=== PATIENT | male | born 1950 | race Caucasian/White ===

== ENCOUNTER → 2024-01-21 07:24 | Outpatient (REF) | payer MEDICARE, OTHER, SELFPAY | LOC: EMG 07:24 | PROVIDERS: ATTENDING PHYSICIAN Psychiatry & Neurology Neurology; FAMILY PHYSICIAN Family Medicine | DX: G61.0 Guillain-Barre syndrome (principal); R20.0 Anesthesia of skin | CPT/HCPCS: 95886; 95911 ==

== ENCOUNTER → 2024-02-15 11:34 | Outpatient (REF) | payer MEDICARE, OTHER, SELFPAY | LOC: PAVMRI 11:34 | PROVIDERS: ATTENDING PHYSICIAN Psychiatry & Neurology Neurology; FAMILY PHYSICIAN Family Medicine | DX: G40.009 Localization-related (focal) (partial) idiopathic epilepsy and epileptic syndromes with seizures of localized onset, not intractable, without status epilepticus (principal) | CPT/HCPCS: 72157; A9575 ==

== ENCOUNTER → 2024-02-16 11:26 | Outpatient (REF) | payer MEDICARE, OTHER, SELFPAY | LOC: PAVMRI 11:26 | PROVIDERS: ATTENDING PHYSICIAN Psychiatry & Neurology Neurology; FAMILY PHYSICIAN Family Medicine | DX: G61.0 Guillain-Barre syndrome (principal) | CPT/HCPCS: 72156; A9575 ==

== ENCOUNTER 2024-08-22 12:10 | Inpatient (IN) | payer MEDICARE, OTHER, SELFPAY ==
[2024-08-22] VITALS (71 sets, daily range): BP systolic 135–192; BP diastolic 78–110; BMI 31.9
[2024-08-22 10:05] LABS: Glucose - Point of Care 88 mg/dl (70-99)
--- NOTE | 2024-08-22 10:11 | CON.NEURO ---
Consultation
Order
Date of Consultation: 08/22/24
Requesting physician: Celine Benavides MD
Reason for Consult: Stroke alert
Prehospital notification: 9:52 AM
Neurology Consultation Note.
HPI: This is a 73-year-old man who presented to [facility] on with aphasia.
According to EMS Mr. Degroot was found confused and aphasic at the kitchen table approximately 35 minutes prior to the presentation.
According to MS. Degroot this morning around 9:05 AM, the patient was speaking normally and fluently. However, shortly after, he became unable to complete sentences without them being garbled. The patient's reports that he was still able to
comprehend and did not seem different in other aspects.
The patient typically wakes up around 4 AM but waits to take his medication until his wakes up. It is unclear if he took his medication this morning.
Recently, the patient was diagnosed with polymyalgia rheumatica and started on prednisone.
Mr. Degroot reportedly has not had any recent surgeries, procedures,head trauma or epidural steroid injections. There has been no reported blood in his stool or urine, and he does not have any underlying cancers.
Blood pressure by EMS 170/90, heart rate is 83.
ER VS: 192/107, 74, 18, afebrile
PDMP: No recently prescribed medications
Labs: Normal platelets, PT PTT
CT head wo contrast�mild atrophy
CTA head/neck�no evidence of hemodynamically significant stenosis
Ambulatory EEG(05/29/2020) normal
PMH: Polymyalgia rheumatica, chronic cerebellar infarct, seizure DO, CAD, HTN, DLP, IGT, vitamin B12 deficiency, bilateral (neuropathy), asthma, chronic back pain
PSH: AVR(11/20/2014), CABG,
SH: , former smoker,
FH: Not contributory to current presentation
All: Chlorpromazine
ROS: Unable due to aphasia
General: Well developed. In no acute distress.
Cardio: Regular rate . Extremities are without cyanosis or edema.
Neuro:
Mental Status: Alert, attends to examiner briefly. Follows simple requests intermittently. No verbal output. No hemineglect.
Cranial Nerves: Orthophoric primary gaze pupils are equally round and reactive to light. Horizontal EOMs full. Blinks to threat bilaterally no ptosis. No nystagmus. V1-V3 intact to light touch and pinprick bilaterally, symmetric. Face
symmetric. Normal hearing AU. The palate elevated well. SCMs and traps 5/5. Tongue midline. No dysarthria.
Motor: All limbs are antigravity. Limited exam due to aphasia
Sensory: Admitted exam due to poor attention.
Coordination: No tremors, clonic movements
Gait: deferred
Assessment and Plan:
I. Acute expressive and receptive aphasia. Differential diagnosis includes vascular vs ictal versus viral.
II. History of epilepsy
III. Hypertensive emergency
IV. Polymyalgia rheumatica
-Admit to ICU
-STAT IV Tenecteplase 25 mg/kg once. TNK has similar efficacy and safety outcomes compared with alteplase including rates of excellent functional outcome, symptomatic intracerebral hemorrhage, and mortality at 90 days. Risks including intracranial
hemorrhage and benefits of TNK therapy has been discussed with patient's spouse who was agreeable to treatment
-Neuro checks while in the ED � Q15 minutes.
-Maintain euvolemia using 0.9% NaCl.
-Strictly follow I's & O's.
-Avoid antihypertensive medications unless MAP is persistently higher than 130
-Treat persistently elevated MAP>130 with IV Labetalol.
- NPO, especially if the level of arousal is depressed.
-NGT after the 2nd day for nutrition and meds if dysarthria or dysphagia present;
-Maintain elevation of HOB 30-45 degrees.
- Utilize a pneumatic compression device for DVT prophylaxis.
- For anticoagulation-related hemorrhage: aggressive reversal using FFP, Vitamin K, protamine sulfate.
-No antiplatelet agents nor anticoagulants, including heparin, low molecular weight heparin, heparinoids, warfarin, ASA and other antiplatelet agents, and NSAIDs;
-Monitoring of vital signs and neurologic status should be performed every hour.
-For any worsening of neurologic condition:
a. STAT head CT
b. STAT neurologic consult for evaluation
c. STAT Neurosurgical consult for evaluation
-Seizure precautions
-Routine EEG
-Brain MRI
-Continue Keppra 1 g twice daily IV
-Continue aspirin 81 mg once a day
-Check Keppra level, CK, LDL, urine tox
-TTE
SCD/TEDs;
I personally reviewed all radiology and labs along with past medical records pertinent to current medical problems. Total time spent in patient care is 60 minutes.
Thank you for allowing us to participate in the care of this patient. We will continue to follow. Please do not hesitate to contact us with any questions or concerns.
Subjective/Objective
Subjective Data
Date of Service: August 22, 2024
Objective Data
Patient Allergies
chlorpromazine [From Thorazine] Adverse Reaction (Severe, Verified 04/12/22 08:55)
Unknown
Medications
-
Home Medications
�Medication �Instructions �Recorded
ascorbic acid (vitamin C) 500 mg 1,000 mg PO DAILY Supplement 06/06/18
tablet (Vitamin C)
aspirin 81 mg tablet,delayed 81 mg PO DAILY Blood clot 06/06/18
release prevention/tx
atorvastatin 40 mg tablet 40 mg PO HS High cholesterol 06/06/18
metoprolol succinate 50 mg 50 mg PO HS Blood pressure 06/06/18
tablet,extended release 24 hr
albuterol sulfate 90 mcg/actuation 2 puff inhalation R QID PRN 04/12/22
aerosol inhaler wheezing
fluticasone furoate 200 1 inh inhalation DAILY 04/12/22
mcg-vilanterol 25 mcg/dose Lung/breathing issues
inhalation powder (Breo Ellipta)
levetiracetam 1,000 mg tablet 1,000 mg PO BID Neurological 04/12/22
Condition
acetaminophen 325 mg tablet 650 mg (2 x 325 mg) PO Q6HPRN PRN 04/16/22
mild pain/ fever>100.5F #0 tabs
cyanocobalamin (vitamin B-12) 1,000 mcg PO DAILY #1 tab 04/16/22
1,000 mcg tablet
amlodipine 5 mg tablet 5 mg PO BID #60 tabs 04/24/22
gabapentin 400 mg capsule 800 mg (2 x 400 mg) PO TID #90 caps 04/24/22
Home Medications
-
Home Medications
ascorbic acid (vitamin C) 500 mg tablet (Vitamin C) 1,000 mg PO DAILY Supplement 06/06/18
aspirin 81 mg tablet,delayed release 81 mg PO DAILY Blood clot prevention/tx 06/06/18
atorvastatin 40 mg tablet 40 mg PO HS High cholesterol 06/06/18
metoprolol succinate 50 mg tablet,extended release 24 hr 50 mg PO HS Blood pressure 06/06/18
albuterol sulfate 90 mcg/actuation aerosol inhaler 2 puff inhalation R QID PRN wheezing 04/12/22
fluticasone furoate 200 mcg-vilanterol 25 mcg/dose inhalation powder (Breo Ellipta) 1 inh inhalation DAILY Lung/breathing issues 04/12/22
levetiracetam 1,000 mg tablet 1,000 mg PO BID Neurological Condition 04/12/22
acetaminophen 325 mg tablet 650 mg (2 x 325 mg) PO Q6HPRN PRN mild pain/ fever>100.5F #0 tabs 04/16/22
cyanocobalamin (vitamin B-12) 1,000 mcg tablet 1,000 mcg PO DAILY #1 tab 04/16/22
amlodipine 5 mg tablet 5 mg PO BID #60 tabs 04/24/22
gabapentin 400 mg capsule 800 mg (2 x 400 mg) PO TID #90 caps 04/24/22
[2024-08-22 10:20] LABS: % Basophils 0.4 % (0-2); % Eosinophils 1.6 % (0-6); % Immature Granulocytes 0.9 % (0-0.5); % Lymphocytes 24.3 % (20.5-51.1); % Monocytes 9.8 % (1.7-9.3); Absolute Basophils 0.1 10^3/uL (0-0.2); Absolute Eosinophils 0.2 10^3/uL (0-0.7); Absolute Immature Granulocytes 0.1 10^3/uL (0-0.05); Absolute Lymphocytes 2.8 10^3/uL (1.2-3.4); Absolute Monocytes 1.1 10^3/uL (0.1-0.6); Absolute Neutrophils 7.2 10^3/uL (1.4-6.5); Hematocrit 47.5 % (39.0-52.0); Mean Corp Hgb Conc. 33.7 g/dL (33.0-37.0); Mean Corpuscular Hgb 31.2 pg (27.0-31.0); Mean Corpuscular Volume 92.6 fL (80.0-94.0); Mean Platelet Volume 8.7 fL (7.4-10.4); Nucleated Red Blood Cells % 0 % (-); Platelet Count 244 10^3/uL (130-400); Red Blood Cell Count 5.13 10^6/uL (4.70-6.10); Red Cell Dist. Width 13.7 % (11.5-14.5); White Blood Cell Count 11.4 10^3/uL (4.8-10.8)
[2024-08-22 10:32] LABS: APTT 24.5 Sec (23.4-35.0); INR 0.99; PT 13.4 Sec (11.4-14.6)
--- NOTE | 2024-08-22 10:37 | ED.CVA ---
History of Present Illness
General
Chief Complaint: CVA/TIA Symptoms
Time Seen by Provider: 08/22/24 10:03
Onset of Stroke Symptoms
Onset of symptoms known: Yes
Date of onset of symptoms: 08/22/24
Time of onset of symptoms: 09:00
Time pt last seen normal is known: Yes
Date last time pt seen normal: 08/22/24
Time last time pt seen normal: 09:00
History of Present Illness
History of Present Illness:
73-year-old male with history of seizure disorder and hypertension presenting to the emergency department for strokelike symptoms. Per medics, saw patient about 30 minutes prior to arrival, was aphasic. Initial report of last seen normal last
evening prior to bedtime. Patient did have aortic valve repair several weeks ago, however is on aspirin, otherwise no thinners. Patient very limited historian given his presenting aphasia. No report of recent fall or trauma. Patient is on Keppra
for his seizures. Per , last seizure was about 5 years ago. No additional history obtained at this time
Past History
Past History
ED Past Medical History: Asthma, CAD, HTN, Hypercholesterolemia, Other (TERE positive, low vitamin B12 level, obstructive sleep apnea) and Other (Chronic back pain)
ED Past Surgical History: Cardiac (AVR 2014, CABG 2010)
Social History
Tobacco: Non-smoker
Alcohol: None
Drug: None
Personal:
Living: with family
Employment: Employed
Family History
Family History: CAD
Phy Exam
Physical Exam
Physical Exam:
General: Alert, nontoxic
HEENT: protecting airway
Neck: appears supple
CV: Normal heart rate, regular rhythm
Resp: No accessory muscle use, no increased work of breathing, lungs clear to auscultation bilaterally
Abd: Soft and non-distended, no tenderness to palpation
Extremities: No deformities, no swelling, no erythema
Neuro: alert, however severe aphasia, expressive aphasia as well as broken aphasia. Difficulty following some commands. No weakness to upper and lower extremities with sensation intact.
: deferred
Rectal: deferred
Psych: Normal affect
Skin: Intact
Scores
NIH Stroke Score
Level of Consciousness: 0 - Alert
LOC Questions: 2-Neither correct
LOC Commands: 1-Performs one correctly
Best Horizontal Gaze: 0-Normal
Visual Peng: 0=Normal, no visual loss
Facial Palsy: 0=Normal, symmetrical
Motor - Right Arm: 0=No drift 10 seconds
Motor - Left Arm: 0=No drift 10 seconds
Motor - Right Le-No drift 5 seconds
Motor - Left Le-No drift 5 seconds
Limb Ataxia: 2-Present in two limbs
Sensation: 0-Normal
Best Language: 2-Severe aphasia
Dysarthria: 0-Normal
Extinction and Inattention: 0-No abnormality
Total Score:: 7
Course
Orders/Labs/Results
Orders:
Orders
08/22/24 10:02
Electrocardiogram (*1) Urgent
Reason for Study: Other
Other Reason for Exam: Possible Stroke
CT HEAD STROKE ALERT W/o Cont Urgent
Comment:
Reason For Exam: aphasia
Bedside Glucose- Treatment ONCE
Cardiac Monitoring- Treatment ONCE
EKG- Treatment ONCE
IV Insert/Care/Rem.- Treatment PRN
Vital Signs As Directed
Frequency: Other
Weight As Directed
Frequency: Once
Comment: ZERO STRETCHER SCALE FOR ACCURATE WEIGHT
O2 Therapy [RESP] Urgent
Titrate/Wean O2 to maintain O2 sat greater than (%): 93
Special Instructions: MAINTAIN CONTINUOUS O2 SATS > OR = 93%
08/22/24 10:03
CT HEAD/NECK ANG STROKE ALERT Urgent
Comment:
Reason For Exam: aphasia
08/22/24 10:11
Complete Blood Count/With Diff Urgent
Comprehensive Metabolic Panel Urgent
PTT Urgent
Prothrombin Time Urgent
Troponin I Urgent
08/22/24 10:32
Tenecteplase [Tnkase] 25 mg Syringe [Syringe Non-Pump] 0 ml IV NOW
Provider explained risk/benefits to patient &/or caregiver?: Yes
08/22/24 10:35
Aspirin 300 mg RECTAL NOW STA
Labetalol HCl [Trandate] 20 mg IV NOW STA
08/22/24 10:41
Labetalol HCl [Trandate] 10 mg IV NOW STA
08/22/24 10:42
Speech Screening from Heather Routine
08/22/24 11:00
Flush (0.9% Sodium Chloride) [Flush (Nss)] See Dose Instructions IV PER PROTOCOL
Abnormal Lab Results
08/22/24
10:11
WBC 11.4 H 10^3/uL
(4.8-10.8)
MCH 31.2 H pg
(27.0-31.0)
Abs Immat Gran (auto) 0.1 H 10^3/uL
(0-0.05)
Absolute Neuts (auto) 7.2 H 10^3/uL
(1.4-6.5)
Absolute Monos (auto) 1.1 H 10^3/uL
(0.1-0.6)
Immature Gran % 0.9 H %
(0-0.5)
Monocytes % 9.8 H %
(1.7-9.3)
08/22/24 10:11
Vital Signs
Initial and Last Documented VS:
Initial Vital Signs
Temp Pulse Resp BP Pulse Ox
98.7 F 74 18 192/107 94
08/22/24 10:28 08/22/24 10:28 08/22/24 10:28 08/22/24 10:28 08/22/24 10:28
Last Documented Vital Signs
Temp Pulse Resp BP Pulse Ox
98.7 F 74 18 192/107 94
08/22/24 10:28 08/22/24 10:28 08/22/24 10:08/22/24 10:08/22/24 10:28
MDM/Problems Addressed
MDM/Problems Addressed:
73-year-old male with history of hypertension and seizures presenting for severe aphasia. Vital signs on arrival significant for high blood pressure.
Patient was a prehospital stroke alert. Patient met by ambulance crew with severe aphasia, both broken and expressive. No significant weakness to the extremities. NIH stroke scale at this time is 7 with concern for stroke. Initial story was that
patient was last seen normal last evening, indicating not a TNK candidate. Neurology also at bedside on patient's arrival, plan for CTA and CT head imaging.
10:35 - CT and CTA reported negative by radiology.
10:45 - Discussed again with neurology, who discussed directly with that patient was last normal at 9 AM this morning, so patient is in fact a TNK candidate. No contraindications. consented. Blood pressure initially elevated, however
improved without any antihypertensive medications, clear for TNK.
10:50 - TNK administered and significant improvement in symptoms. Patient is now speaking more clearly, able to identify objects, making more sense in his conversation. Plan for admission to ICU
*Critical Care Note
Total Time (30-74mins, 75-104mins- exclusive of procedures): 55
comment:
The high probability of a clinically significant, sudden or life threatening deterioration of the neurologic system(s) required my full and direct attention, intervention and personal management. The aggregate critical care time was 55 minutes. This
time is in addition to time spent performing reported procedures but includes the following:
[x] Data Review and interpretation
[x] Patient assessment and monitoring of vital signs
[x] Documentation
[x] Medication orders and management
ED Attending Note
-
Portions of this chart may have been created with voice recognition software.� Occasional wrong word or��sound alike� substitutions may have occurred due to the inherent limitations of voice recognition software.
Discharge Plan
Departure
Prescriptions:
No Action
atorvastatin 40 MG tablet
40 mg PO .Q72H@2200
metoprolol succinate 50 MG tablet extended release 24 hr
50 mg PO HS
aspirin 81 MG tablet,delayed release (DR/EC)
81 mg PO DAILY
ascorbic acid (vitamin C) [Vitamin C] 500 MG tablet
1,000 mg PO DAILY
levetiracetam 1,000 mg Tablet
1,000 mg PO BID
albuterol sulfate 1 PUFF HFA aerosol inhaler
2 puff inhalation R QIDPRN PRN (Reason: wheezing)
cyanocobalamin (vitamin B-12) 1,000 mcg Tablet
1,000 mcg PO DAILY Qty: 1 0RF
prednisone 5 mg Tablet
12.5 mg PO DIRECTED
Rx Instructions:
as of august 08 patient to decrease to 12.5mg, unsure for how long
montelukast [Singulair] 10 mg Tablet
10 mg PO DAILY
Referrals:
UNKNOWN - PT NOT,INTERVIEWE [Family Provider] -
Interventions
Interventions:
*Risk Screen - Suicide Last Done: 08/22/24 10:42
*General Assessment Last Done: 08/22/24 10:42
*Neglect/Abuse Screening Last Done: 08/22/24 10:42
*ED- Fall Risk Assessment Last Done: 08/22/24 10:42
*ED COVID-19 Vaccine History Last Done: 08/22/24 10:42
ED- Pulmonary Assessment Last Done: 08/22/24 10:28
ED- Neurological Assessment Last Done: 08/22/24 10:28
ED- Cardiac Assessment Last Done: 08/22/24 10:28
ED Swallowing Screen Last Done: 08/22/24 10:28
Discharge Date and Time
Print Language: THAI
[2024-08-22 10:44] LABS: ALT (SGPT) 37 U/L (0-50); AST (SGOT) 26 U/L (17-59); Albumin 4.6 g/dl (3.5-5.0); Alkaline Phosphatase 34 U/L (38-126); Blood Urea Nitrogen 26 mg/dl (9-20); Calcium 9.2 mg/dl (8.4-10.2); Carbon Dioxide 29 mmol/L (22-30); Chloride 103 mmol/L (98-107); Glucose 89 mg/dl (70-99); Potassium 4.1 mmol/L (3.5-5.1); Sodium 141 mmol/L (135-145); Total Bilirubin 0.8 mg/dl (0.2-1.3); Total Protein 6.7 g/dl (6.3-8.2); eGFR > 60.00
[2024-08-22] MEDS: TNKASE 5 MG IV (10:49)
--- NOTE | 2024-08-22 10:51 | EDRN ---
TNK given per neurologist. Neurologist spoke to the patient's and was told that the patient was seen normal around 0900.
[2024-08-22 11:00] LABS: Troponin I 0.031 ng/ml
--- NOTE | 2024-08-22 11:10 | EDRN ---
Patient is AAOx3. Patient's expressive aphasia is improving. Patient stated that he woke up with a headache today. Patient remembers taking his medications this morning. Patient stated that after he brushed his teeth he could not speak. Patient with
repetitive questions.
[2024-08-22] MEDS: FLUSH (NSS) 1 FLUSH IV (11:37)
[2024-08-22 11:50] LABS: HDL Cholesterol 47 mg/dl; LDL Cholesterol, Calculated 93 mg/dl; Total Cholesterol 164 mg/dl (50-199); Triglyceride 121 mg/dl (10-149); Very Low Density Lipoprotein 24 mg/dl (0-30)
--- NOTE | 2024-08-22 12:20 | EDRN ---
Report given to SUSAN Ansari in ICU. Family with patient. Instructed with to take patient's belongings home with her. Patient insisting on keeping his [employer] badge with him. Badge placed in inside pocket of his jacket by . Patient taken to room 3365 on
monitor on stretcher. [facility] done at bedside with SUSAN Ansari.
--- NOTE | 2024-08-22 12:37 | HPS.HSE ---
Family Physician
-
Family Physician: Stewart Benson
Chief Complaint
-
Aphasia
History of Present Illness
73-year-old male with polymyalgia rheumatica on chronic steroid, dyslipidemia, CARLOS not on CPAP, moderate persistent asthma, B12 deficiency, CAD s/p CABG (2010 at [facility]), pulmonary nodule, H/O Guillain-Pathak� syndrome, S/P TAVR presenting to
the hospital with strokelike symptoms. Per EMS the noticed that the patient was aphasic about 30 minutes prior to their arrival. Last known normal was 9 AM morning of 08/22. Arrived as a prehospital stroke alert. AFVSS at that time. Initial
NIHSS 7. CT head was without signs of transcortical infarct, ICH, other acute findings. CTA was without large vessel occlusion or other acute findings. Neurology recommended TNK administration which was performed at 10:50 AM. Reportedly had a
significant symptomatic improvement following TNK administration. ED labs with WBC 11.4, LDL 93.
Medical History
Past Medical History
Past Medical History: Reports Other
Additional Past Medical History:
CAD
PMR
CARLOS not on CPAP
Mod. Persistent Asthma
Pulmonary nodule
H/O GBS
Past Surgical History: Reports Other
Additional Past Surgical History:
S/P AVR (2014)
S/P CABG (2010)
Social History
Tobacco: Non-smoker
Alcohol: Occasional
Drug: None
Family History
Family History: Not pertinent and Other (CAD)
Allergies / Home Medications
Allergies reflects when Allergies were last updated in [facility].
Home Medications with original date entered in [facility]
Allergy/Medication List:
Allergies
Allergy/AdvReac Type Severity Reaction Status Date / Time
chlorpromazine AdvReac Severe Unknown Verified 04/12/22 08:55
[From Thorazine]
Home Medications
ascorbic acid (vitamin C) 500 mg tablet (Vitamin C) 1,000 mg PO DAILY Supplement 06/06/18
aspirin 81 mg tablet,delayed release 81 mg PO DAILY Blood clot prevention/tx 06/06/18
atorvastatin 40 mg tablet 40 mg PO .Q72H@2200 High cholesterol 06/06/18
metoprolol succinate 50 mg tablet,extended release 24 hr 50 mg PO HS Blood pressure 06/06/18
albuterol sulfate 90 mcg/actuation aerosol inhaler 2 puff inhalation R QIDPRN PRN wheezing 04/12/22
levetiracetam 1,000 mg tablet 1,000 mg PO BID Neurological Condition 04/12/22
cyanocobalamin (vitamin B-12) 1,000 mcg tablet 1,000 mcg PO DAILY #1 tab 04/16/22
montelukast 10 mg tablet (Singulair) 10 mg PO DAILY Lung/Breathing Issues 08/22/24
prednisone 5 mg tablet 12.5 mg PO DIRECTED Anti-Inflammatory 08/22/24
Review of Systems
-
History Source: Patient
A 12 point ROS was completed and negative except as noted: Yes
Constitutional: Reports No Symptoms
EENT: Reports No Symptoms
Respiratory: Reports No Symptoms
Cardiac: Reports No Symptoms
Abdomen/GI: Reports No Symptoms
: Reports No Symptoms
Musculoskeletal: Reports No Symptoms
Skin: Reports No Symptoms
Neurological: Reports See HPI
Endocrine: Reports No Symptoms
Hematologic/Lymphatic: Reports No Symptoms
Psych: Reports No Symptoms
Physical Exam
Vital Signs
Vital Signs
Temp Pulse Resp BP Pulse Ox
98.7 F 78 20 173/96 96
08/22/24 10:28 08/22/24 12:20 08/22/24 12:20 08/22/24 12:20 08/22/24 11:48
Physical Exam
General: Well Developed, Well Nourished, No Apparent Distress and Comfortable
HEENT: NormoCephalic, Anicteric, Moist mucous membranes and Atraumatic
Respiratory: Clear and Non Labored Respirations
Cardiac: S1/S2 and Regular Rhythm; No Murmur, Rub, Gallop, Peripheral Edema, JVD or Carotid Bruits
GI: Soft, Non Tender, Non Distended and Normal Bowel Sounds
Musculoskeletal: No Clubbing, No Cyanosis and Normal Gait & Station
Skin: Warm and Dry; No Rash
Neuro: AO x 3, Nonfocal/grossly intact, Cranial Nerves Intact and Other (NIHSS 0)
Psych: Calm
Laboratory Results
-
Laboratory Results
PT 13.4 Sec (11.4-14.6) 08/22/24 10:11
INR 0.99 08/22/24 10:11
APTT 24.5 Sec (23.4-35.0) 08/22/24 10:11
Total Bilirubin 0.8 mg/dl (0.2-1.3) 08/22/24 10:11
AST 26 U/L (17-59) 08/22/24 10:11
ALT 37 U/L (0-50) 08/22/24 10:11
Alkaline Phosphatase 34 U/L (38-126) L 08/22/24 10:11
Troponin I 0.031 ng/ml 08/22/24 10:11
Data Reviewed
-
MRI: Discussed with Physician (Neuro, ICU)
Lab Data: Labs Reviewed by me, Discussed with Physician and Discussed with Patient
Impression/Plan
-
#Acute CVA
#Expressive Aphasia
-Very likely acute cerebral ischemia; initial NIHSS 7 with aphasia, last known normal 9 AM 08/22
-Initial CT head without signs of ICH or other acute findings, CTA without LVO or acute findings
-CTA was also without any findings of high-grade carotid stenosis
-Status post TNK with NIHSS improvement down to close to 0
-Metabolic panel with LDL 93, total cholesterol 164, HDL 47
-Most recent vital signs with BP 173/96 mmHg
-NIHSS 0 at time of my evaluation
Plan
-BP goal <180/105 mmHg for next 24 hours; IV hydralazine/labetalol as needed
-Monitor on telemetry for underlying arrhythmia such as AF/AFL
-Follow-up MRI brain w/o contrast and TTE
-Continue with statin therapy
-Hold aspirin and other AC for at least 24 hours
-Plan for repeat CT head on 08/23
-Neuro consult
-neurochecks
#Seizure disorder
-History of seizures that he is describes as absent periods
-Home medications include Keppra 1 g twice daily
-Suspect presentation here more related to CVA as it improved with TNK
-Neurology updating EEG, will follow-up for completeness
#CAD s/p CABG
-Home medications include aspirin, high intensity statin, metoprolol succinate
-CABG was performed in 2010 at [facility]
-Holding aspirin as above due to TNK administration
-No signs of ACS
#Polymyalgia rheumatica
#Chronic steroid
-Home regimen includes prednisone 10 mg (7.5 AM + 2.5 PM)
-Has been on extended taper of prednisone, immunosuppressed
-No signs of worsening symptoms at this time
#Moderate persistent asthma
-Home regimen includes Singulair, as needed albuterol
-No signs of asthma flare
-Should be discharged on LABA/ICS maintenance such as Symbicort
#CARLOS not on CPAP
#H/O GBS
DVT PPhx: SCDs
Diet: Regular
CODE STATUS: Full Code
Disposition: Admit to ICU
--- NOTE | 2024-08-22 13:30 | PTCARENOTE ---
Pt arrived via stretcher from ED into Rm 3365 at 1235. Pt awake and talkative, following commands and all conversation appropriate. NIHSS=1 completed w/ ED RN. No running IV's at time of arrival. Pt on RA w/ Pox 96-98%. Pt reports 3/10 frontal
headache that he reports is unchanged since earlier this AM. Physical assessment completed. Orientation provided to pt on surroundings/plan of care/use of call guevara. Pt's and two sons in room at 1300 to see pt-updated on pt's current condition
and plan of care. technology sales consultant in room at begin ordered EEG. Dr Koenig in room to assess pt.
--- NOTE | 2024-08-22 13:37 | CON.INTV ---
Consultation
Consultation Request
Date/Time Consultation Requested: 08/22/2024 12:33pm
Date/Time Consultation Performed: 08/22/2024 1:10pm
Requesting Provider: Dr. Cam Mclean
Performing Provider: Dr. Jl Wood, Dr. Catrina Cadena
Reason for Consultation: Stroke-like symptoms with subsequent administration of TNK
Medical History
-
Chief Complaint: Aphasia
History of Present Illness:
73-year-old male with a past medical history of seizure disorder and hypertension presented to the emergency department due to stroke-like symptoms. Patient was aphasic and having trouble speaking. He was able to understand conversation, and had
no other motor deficits including no drooping, trouble swallowing, sensory deficits. As with discussion with patient's , patient was last seen normally around 9 AM this morning. Patient states that he has had similar symptoms in the past
around 2 to 3 years ago where he had to use his hands to communicate with his as he could not speak. These events resolved by themselves within a few moments. Patient underwent CTA which did not show any acute findings. Neurology evaluated
the patient and the patient was determined to be a TNK candidate. Following administration of TNK there was significant improvement in symptoms. He was able to speak clearly and was able to identify objects and was more coherent. Patient was
admitted to the ICU for further monitoring due to TNK administration.
Past Medical History
Past Medical History: CAD and Other (PMR, CARLOS not on CPAP Mod, Persistent Asthma, Pulmonary nodule, H/O Guillain-Pathak�)
Past Surgical History: Other (S/P AVR (2014), S/P CABG (2010))
Social History
Tobacco: Non-smoker
Alcohol: Occasional
Drug: None
Personal:
Living: With Family
Family History
Family History: Reviewed & Not Pertinent
Allergies / Home Medications
Allergies
Allergy/AdvReac Type Severity Reaction Status Date / Time
chlorpromazine AdvReac Severe Unknown Verified 04/12/22 08:55
[From Thorazine]
Home Medications
�Medication �Instructions �Recorded �Confirmed �Last Taken �Type
ascorbic acid (vitamin C) 500 mg 1,000 mg PO DAILY Supplement 06/06/18 08/22/24 04/11/22 History
tablet (Vitamin C)
aspirin 81 mg tablet,delayed 81 mg PO DAILY Blood clot 06/06/18 08/22/24 04/11/22 History
release prevention/tx
atorvastatin 40 mg tablet 40 mg PO .Q72H@2200 High 06/06/18 08/22/24 04/11/22 History
cholesterol
metoprolol succinate 50 mg 50 mg PO HS Blood pressure 06/06/18 08/22/24 04/11/22 History
tablet,extended release 24 hr
albuterol sulfate 90 mcg/actuation 2 puff inhalation R QIDPRN PRN 04/12/22 08/22/24 04/11/22 History
aerosol inhaler wheezing
levetiracetam 1,000 mg tablet 1,000 mg PO BID Neurological 04/12/22 08/22/24 04/11/22 History
Condition
cyanocobalamin (vitamin B-12) 1,000 mcg PO DAILY #1 tab 04/16/22 08/22/24 Unknown Rx
1,000 mcg tablet
montelukast 10 mg tablet 10 mg PO DAILY Lung/Breathing 08/22/24 08/22/24 Unknown History
(Singulair) Issues
prednisone 5 mg tablet 12.5 mg PO DIRECTED 08/22/24 08/22/24 Unknown History
Anti-Inflammatory
Review of Systems
-
History Source: Patient and Family
Constitutional: No Symptoms
EENT: No Symptoms
Respiratory: No Symptoms
Cardiac: No Symptoms
Abdomen/GI: Other (Mild heartburn)
: No Symptoms
Musculoskeletal: No Symptoms
Skin: No Symptoms
Neuro: Other (Trouble speaking which has now resolved)
Endocrine: No Symptoms
Hematologic/Lymphatic: No Symptoms
Vitals / Labs / Diagnostic Testing
Vital Signs
Temp Pulse Resp BP Pulse Ox
98.0 F 79 21 161/95 96
08/22/24 12:47 08/22/24 13:20 08/22/24 13:20 08/22/24 13:20 08/22/24 13:34
Lab Data
08/22/24 12:33
Laboratory Results
08/22/24 08/22/24
10:11 12:33
PT 13.4 Cancelled
INR 0.99 Cancelled
APTT 24.5 Cancelled
Diagnostic Testing:
Physical Exam
-
HEENT: Normocephalic and Anicteric
Cardiovascular: S1/S2 and Regular Rhythm
Respiratory: Clear and Non-Labored Respirations
GI: Soft, Distended, Non Tender and Normal Bowel Sounds
Neurology: Awake, Alert, Oriented, No Motor Deficits and Other (Right pupil larger than the left, very mild facial droop on right side,)
Skin: Warm
General: Comfortable
Assessment
-
Assessment:
73-year-old male with a past medical history of polymyalgia rheumatica, seizures, moderate persistent asthma, CAD, Guillain-Pathak� syndrome and hypertension presented to the ED due to recent difficulty speaking. Patient underwent CT scans which did
not show any acute findings, was evaluated by neurology who determined that patient was most likely affected by stroke and was in the timeframe for TNK administration. TNK was subsequently administered and patient's symptoms continue to resolve.
Patient was admitted to the ICU for further management post TNK administration.
Plan:
# Strokelike symptoms with aphasia post TNK administration
# Hypertension
# Epileptic Seizures
# Moderate Persistent Asthma
Conditions Prior to Admission
Polymyalgia Rheumatica
Hypertension
CAD
Hyperlipidemia
CARLOS not on CPAP
S/P TAVR
H/O Guillain-Pathak� syndrome
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
-Patient only had aphasia, no other motor or sensory deficits
-Right pupil larger than the left, very mild facial droop on the right
-Patient says that he has had similar symptoms like this in the past which resolved on their own. Possibly due to TIA in the past
-Neurology was consulted in the ED, input appreciated
-Administered 25 mg of TNK in the ED as per neuro
-Symptoms resolved post TNK, admitted to the ICU for further management post TNK administration
-Continue neurochecks every hour
-Patient will undergo Echocardiogram, MRI brain
-Follow-up Head CT tomorrow
-EEG ordered, rule out seizure activity
-Holding aspirin for 24 hours
-N.p.o. for now, awaiting speech evaluation. Will switch to cholesterol-lowering diet as patient shows he is able to eat.
# Hypertension
- Patient only on metoprolol 50 mg at home
- Hypertensive in the ED, continues to be hypertensive
- Permissive hypertension, with goal BP being between 160 and 180/105
- IV hydralazine/labetalol as needed to keep blood pressure between that range
#Epileptic Seizures
- EEG ordered, to rule out seizure activity
- Continue Keppra 100 mg p.o. twice daily
- As per patient's patient has not had seizures in 5 years, last time it happened he says he blacked out. Does not remember
#Moderate Persistent Asthma
#Obstructive Sleep apnea (No CPAP at home)
- Home regimen Singulair and as needed albuterol, continue
- Continue monitoring oxygen, support with supplemental oxygen and nebulizer treatment as needed
- Possible CPAP use at night if hypoxic
Diagnostic Imaging:
CT HEAD STROKE ALERT W/o Cont
No acute intracranial pathology.
Mild periventricular small vessel ischemic disease.
CT HEAD/NECK ANG STROKE ALERT
No acute vascular pathology. No M1 or M2 occlusion.
Mild C5 C7/T1 degenerative disc disease. New.
EKG (08/22/2024):
NORMAL SINUS RHYTHM
NORMAL ECG
Data Reviewed
-
EKG: Report reviewed by me, Discussed with Physician and Discussed with Patient
CT Scan: Report reviewed by me, Discussed with Physician, Discussed with Patient and Discussed with Family
Labs: Labs reviewed by me, Discussed with Physician, Discussed with Nurse, Discussed with Patient and Discussed with Family
[2024-08-22] MEDS: TYLENOL 650 MG PO ×2 (14:20→23:38)
--- NOTE | 2024-08-22 16:28 | EEG.RPT ---
Electroencephalogram Report
Recording
Date of EE08/22/24
Type of EEG: Routine
Length of EEG recordin minutes
Done with Video Recording: Yes
Patient Status: Inpatient
Recording Conditions: Awake and Drowsy
Hyperventilation Performed: No
Photic Stimulation Performed: Yes
Report
LESS THAN 1 HOUR EEG REPORT
LESS THAN 1 HOUR EEG INTERPRETATION:
Unremarkable EEG for age
CLINICAL CORRELATION:
A normal EEG does not rule out a diagnosis of epilepsy. If clinical suspicion for seizure persists, a prolonged recording may be warranted.
Clinical correlation is advised.
METHODS:
A 21 channel digitized electroencephalogram (EEG) was performed using the 10/20 international system of electrode placement and one-lead of ECG recorded in the ICU. Video was recorded. Persyst quantitative EEG analysis was performed.
ELECTROENCEPHALOGRAPHER IMPRESSION(S):
Quality of study
Good
Background
There was an unremarkable anterior-posterior voltage gradient of alpha frequency.
With eye opening the background activity changed to a low voltage mixture of frequencies.
There were no significant asymmetries of background activity noted.
Sleep
Drowsiness present
Hyperventilation
Produced symmetric amplitude increase and mild slowing appropriate to age
Photic Stimulation
Produced driving symmetrically in most flash frequencies
ECG
Normal sinus rhythm
--- NOTE | 2024-08-22 17:30 | PTCARENOTE ---
Pt continues to rest quietly, no new complaints. Neuro unchanged. Tolerated early dinner tray. Assessment unchanged.
[2024-08-22] MEDS: KEPPRA 1000 MG PO (19:53)
--- NOTE | 2024-08-22 20:30 | PTCARENOTE ---
Rec'd pt NIH 0, assessed in tandem with outgoing nurse. Pt c/o mild headache as previously noted, relieved by Tylenol. TORRES 5/5, pupils remain unequal. Right 5, Left 4. GCS 15. Afebrile, NSR on monitor. BP within desired parameter. Pulses palpable,
no edema. IV lines flushed/patent. Room air, clear. 96%. Tolerating cholesterol lowering diet. Voiding in urinal. Will monitor.
[2024-08-22] MEDS: LIPITOR 40 MG PO (21:14)
[2024-08-22] MEDS: TOPROL XL 50 MG PO (21:14)
[2024-08-22] MEDS: DELTASONE 2.5 MG PO (21:14)
[2024-08-22 22:24] LABS: ALT (SGPT) 32 U/L (0-50); AST (SGOT) 24 U/L (17-59); Albumin 3.5 g/dl (3.5-5.0); Alkaline Phosphatase 32 U/L (38-126); Blood Urea Nitrogen 22 mg/dl (9-20); Calcium 9.2 mg/dl (8.4-10.2); Carbon Dioxide 30 mmol/L (22-30); Chloride 106 mmol/L (98-107); Estimated Creatinine Clearance 86 ml/min; Glucose 102 mg/dl (70-99); Magnesium 2.1 mg/dl (1.6-2.3); Phosphorus 4.7 mg/dl (2.5-4.5); Potassium 3.9 mmol/L (3.5-5.1); Sodium 141 mmol/L (135-145); Total Bilirubin 0.7 mg/dl (0.2-1.3); Total Protein 5.8 g/dl (6.3-8.2); eGFR > 60.00
[2024-08-23] VITALS (33 sets, daily range): BP systolic 118–168; BP diastolic 77–146; PULSE 90; O2SAT 96–97; BMI 32.1
--- NOTE | 2024-08-23 00:35 | PTCARENOTE ---
No change in previous assessment. Labs repeated as ordered, Will monitor.
--- NOTE | 2024-08-23 04:00 | PTCARENOTE ---
Hourly assessments unchanged, GCS 15, NIH 0. Pt calm and cooperative. AM labs sent and pending. Will continue to monitor
[2024-08-23 04:37] LABS: % Basophils 0.5 % (0-2); % Eosinophils 0.8 % (0-6); % Immature Granulocytes 0.5 % (0-0.5); % Lymphocytes 15.6 % (20.5-51.1); % Monocytes 8.1 % (1.7-9.3); % Neutrophils 74.5 % (42.2-75.2); Absolute Basophils 0.1 10^3/uL (0-0.2); Absolute Eosinophils 0.1 10^3/uL (0-0.7); Absolute Immature Granulocytes 0.1 10^3/uL (0-0.05); Absolute Lymphocytes 1.6 10^3/uL (1.2-3.4); Absolute Monocytes 0.9 10^3/uL (0.1-0.6); Absolute Neutrophils 7.8 10^3/uL (1.4-6.5); Hematocrit 42.8 % (39.0-52.0); Mean Corpuscular Hgb 31.9 pg (27.0-31.0); Mean Corpuscular Volume 91.1 fL (80.0-94.0); Mean Platelet Volume 9.1 fL (7.4-10.4); Nucleated Red Blood Cells % 0 % (-); Platelet Count 215 10^3/uL (130-400); Red Cell Dist. Width 13.5 % (11.5-14.5); White Blood Cell Count 10.5 10^3/uL (4.8-10.8)
[2024-08-23 04:41] LABS: Blood Urea Nitrogen 23 mg/dl (9-20); Carbon Dioxide 25 mmol/L (22-30); Chloride 108 mmol/L (98-107); Estimated Creatinine Clearance 96 ml/min; Glucose 88 mg/dl (70-99); Magnesium 2.1 mg/dl (1.6-2.3); Phosphorus 4.1 mg/dl (2.5-4.5); Potassium 4.3 mmol/L (3.5-5.1); Sodium 142 mmol/L (135-145); eGFR > 60.00
[2024-08-23 05:08] LABS: TSH Reflex To Free T4 2.12 uIU/ml (0.47-4.68)
--- NOTE | 2024-08-23 07:40 | W.PN.INTV ---
Today's Communication / Plan
Recommendations
MRI today, will resume Aspirin and get PT/OT evaluation after 24hrs of admission. Speech evaluation today. Continue monitoring for any changes in speech.
Assessment
-
Assessment:
73-year-old male with a past medical history of polymyalgia rheumatica, seizures, moderate persistent asthma, CAD, Guillain-Pathak� syndrome and hypertension presented to the ED due to recent difficulty speaking. Patient underwent CT scans which did
not show any acute findings, was evaluated by neurology who determined that patient was most likely affected by stroke and was in the timeframe for TNK administration. TNK was subsequently administered and patient's symptoms continue to resolve.
Patient was admitted to the ICU for further management post TNK administration. Patient's aphasia has now resolved and he reports no adverse events overnight. Patient most likely to be downgraded from ICU level care after MRI.
Plan:
# Strokelike symptoms with aphasia post TNK administration
# Hypertension
# Leukocytosis- resolved
# Epileptic Seizures
# Moderate Persistent Asthma
Conditions Prior to Admission
Polymyalgia Rheumatica
Hypertension
CAD
Hyperlipidemia
CARLOS not on CPAP
S/P TAVR
H/O Guillain-Pathak� syndrome
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
-Patient only had aphasia, no other motor or sensory deficits
-Right pupil mildly larger than the left, very mild facial droop on the right
-Patient says that he has had similar symptoms like this in the past which resolved on their own. Possibly due to TIA in the past
-Neurology was consulted in the ED, input appreciated
-Administered 25 mg of TNK in the ED as per neuro
-Symptoms resolved post TNK, admitted to the ICU for further management post TNK administration
-Continue neurochecks every hour
-Echocardiogram w/ bubble study unremarkable, awaiting MRI today
-Follow-up Head CT today
-EEG did not show any acute seizure activity
-Holding aspirin for 24 hours, will resume today
-Switched to cholesterol lowering diet after passing bedside swallow eval, tolerating well for now. Speech therapy evaluation today most likely
-LDL 93-> goal is <70.
-Awaiting HbA1c
# Hypertension
- Patient only on metoprolol 50 mg at home
- Hypertensive in the ED and occasionally in the ICU
- Permissive hypertension, with goal BP being between 160 and 180/105
- IV labetalol as needed to keep blood pressure between that range
#Epileptic Seizures
- EEG ordered, to rule out seizure activity
- EEG did not show any acute seizure activity
- Continue Keppra 100 mg p.o. twice daily
- As per patient's patient has not had seizures in 5 years, last time it happened he says he blacked out. Does not remember
#Moderate Persistent Asthma
#Obstructive Sleep apnea (No CPAP at home)
- Home regimen Singulair and as needed albuterol, continue
- Continue monitoring oxygen, support with supplemental oxygen and nebulizer treatment as needed
- Possible CPAP use at night if hypoxic
Diagnostic Imaging:
CT HEAD STROKE ALERT W/o Cont
No acute intracranial pathology.
Mild periventricular small vessel ischemic disease.
CT HEAD/NECK ANG STROKE ALERT
No acute vascular pathology. No M1 or M2 occlusion.
Mild C5 C7/T1 degenerative disc disease. New.
EKG (08/22/2024):
NORMAL SINUS RHYTHM
NORMAL ECG
Echocardiogram (08/22/2024):
Technically difficult study - Lumason used.
Normal LV size and function with no regional wall motion abnormality.
Left ventricular ejection fraction is 55-60% by visual estimation.
Normal right ventricular size and function.
S/p AVR with peak/mean gradients across the aortic valve of 7/4 mmHg
respectively.
Insufficient TR for estimation of PASP.
No prior study available for comparison.
EEG (08/22/2024):
Unremarkable EEG for age
Subjective Dataa
Subjective Data
Date of Service:
Date of Service: August 23, 2024
Chief Complaint: [employer] Follow Up
Subjective:
Patient has been feeling well and reports no adverse events. Has had no further instances of aphasia and continues to have full motor strength in all extremities. No sensory deprivation. Has been tolerating diet well and reports no abdominal pain,
nausea, or vomiting.
Review of Systems
General: Satisfactory Appetite
HEENT: Other (No acute complaints)
Cardiopulmonary: Other (No acute complaints)
GI: Other (No acute complaints)
Neuro: Other (No acute complaints)
Genitourinary: Other (No acute complaints)
Objective Data
Data Reviewed
Vital Signs / I&O / Oxygen:
Vital Signs
Temp Pulse Resp BP Pulse Ox
98 F 65 16 130/99 95
08/23/24 03:02 08/23/24 06:50 08/23/24 06:50 08/23/24 06:50 08/23/24 06:30
Intake and Output
08/22/24 08/23/24 08/24/24
06:59 06:59 06:59
Intake Total 360 / 360
Output Total 1350 / 1350 250 / 250
Balance -990 / -990 -250 / -250
SaO2 95
Physical Exam
General: Comfortable and Good Appetite
HEENT: Normocephalic and Anicteric
Cardiovascular: S1-S2 and Regular Rhythm
Respiratory: Clear and Non-Labored Respirations
GI: Soft, Non Distended and Non Tender
Neurology: Awake, Alert, Oriented, AO x 3 and No Motor Deficits
Skin: Warm, Dry and Good Color
Labs/Micro/Reports
Lab Data
08/23/24 04:01
08/23/24 04:01
Laboratory Results
08/22/24 08/22/24
10:11 12:33
PT 13.4 Cancelled
INR 0.99 Cancelled
APTT 24.5 Cancelled
--- NOTE | 2024-08-23 08:00 | PTCARENOTE ---
Received pt sitting upright int the bed with bilateral L/ knee-hi SCD's. He is awake and alert, handoff NIH 0. Bilateral upper extremity protective catheter both flushed and patent. Lungs CTA, decreased in the bases. Fair appetite. +BSX4. Voiding in
the urinal. He was informed of the plan of care regarding MRI and screening call from MRI department. His phone is at the bedside. Safe environment maintained. Will continue supportive car. Discussion of the importance of medical follow-up and to
understand the S/S of a stroke and to call 911 for activation of stroke team for the rapid dx and treatment of stroke.
[2024-08-23] MEDS: SINGULAIR 10 MG PO (09:06)
[2024-08-23] MEDS: KEPPRA 1000 MG PO ×2 (09:06→20:25)
[2024-08-23] MEDS: DELTASONE 7.5 MG PO (09:06)
[2024-08-23] MEDS: VITAMIN C 1000 MG PO (09:09)
[2024-08-23 10:22] LABS: Glycohemoglobin (HgbA1c) 6.5 % (4.0-5.6)
--- NOTE | 2024-08-23 10:59 | W.PN.NEURO.1 ---
Today's Communication / Plan
-
.
Subjective/Objective
Subjective Data
Date of Service: August 23, 2024
Neurology follow-up note.
Mr. Degroot recalls being unable to answer his 's questions on the morning of presentation. He states that he could understand spoke language but couldn't respond. Emergency services were called, and the patient recalls the paramedics' arrival and
being transported to the hospital. The patient's language reportedly completely returned to normal within 2 hours since ER presentation.
Mr. Degroot did experienced a mild headache through the night, which he treated with Tylenol.
LDL-93, hemoglobin A1c�6.5
The patient has a history of seizures and is currently taking Keppra 1000 mg twice daily. He recalls a previous seizure where he 'lost consciousness and woke up in an ambulance'. He mentions having had similar episodes in the past lasting about 30
seconds, for which he did not seek medical attention.
Routine EEG(08/22/2024) normal.
Brain MRI without gadolinium ()�an acute punctuate left MCA territory cortical discal infarct.
CT head wo contrast(08/22/2024)�mild atrophy
CTA head/neck�no evidence of hemodynamically significant stenosis
Ambulatory EEG(05/29/2020) normal.
PMH: Polymyalgia rheumatica, chronic cerebellar infarct, seizure DO, CAD, HTN, DLP, IGT, vitamin B12 deficiency, bilateral (neuropathy), asthma, chronic back pain
PSH: AVR(11/20/2014), CABG,
SH: , former smoker, retired [employer], no history excess alcohol use
FH: Not contributory to current presentation
All: Chlorpromazine
ROS: Negative for headache, change in vision, strength, sensation, chest pain, palpitations or dyspnea.
General: Well developed. In no acute distress.
Cardio: Regular rate . Extremities are without cyanosis or edema.
Neuro:
Mental Status: Alert, fully oriented, follows complex requests across midline. Fluent. No hemineglect.
Cranial Nerves: Orthophoric primary gaze pupils are equally round and reactive to light. Horizontal EOMs full. Visual barros are full. No nystagmus. V1-V3 intact to light touch and pinprick bilaterally, symmetric. Face symmetric. Normal
hearing AU. The palate elevated well. SCMs and traps 5/5. Tongue midline. No dysarthria.
Motor: Strength 5 out of 5 throughout
Coordination: No dysmetria or tremor
Gait: deferred
Assessment and Plan:
I. Acute punctuate left MCA territory cortical infarct. Likely etiology�embolic. s/p TNK.
II. History of epilepsy
III. Polymyalgia rheumatica
IV. IGT, DLP
-Continue Telemetry monitoring
-Start ASA 81 mg QD indefinitely in 24 hours of TNK administration
-Continue Lipitor 40 mg nightly
-DURGA if TTE is unremarkable
-Continue Keppra 1 g twice daily
-Cardiology consult�Holter monitor, ILR
-DVT prophylaxis.
I personally reviewed all radiology and labs along with past medical records pertinent to current medical problems. Total time spent in patient care is 35 minutes.
Thank you for allowing us to participate in the care of this patient. We will continue to follow. Please do not hesitate to contact us with any questions or concerns.
Objective Data
Vital Signs
Temp Pulse Resp BP Pulse Ox
36.8 C 78 21 136/88 95
08/23/24 07:46 08/23/24 09:50 08/23/24 09:50 08/23/24 09:50 08/23/24 08:15
Lab Results
08/23/24 04:01
08/23/24 04:01
PT Cancelled 08/22/24 12:33
INR Cancelled 08/22/24 12:33
APTT Cancelled 08/22/24 12:33
Sodium 142 mmol/L (135-145) 08/23/24 04:01
Potassium 4.3 mmol/L (3.5-5.1) 08/23/24 04:01
BUN 23 mg/dl (9-20) H 08/23/24 04:01
Glucose 88 mg/dl (70-99) 08/23/24 04:01
Calcium 9.0 mg/dl (8.4-10.2) 08/23/24 04:01
Phosphorus 4.1 mg/dl (2.5-4.5) 08/23/24 04:01
LDL Cholesterol, Calc 93 mg/dl 08/22/24 11:15
Patient Allergies
chlorpromazine [From Thorazine] Adverse Reaction (Severe, Verified 04/12/22 08:55)
Unknown
Vital Signs and Labs
-
Vital Signs and Labs:
Vital Signs
Temp Pulse Resp BP Pulse Ox
36.8 C 78 21 136/88 95
08/23/24 07:46 08/23/24 09:50 08/23/24 09:50 08/23/24 09:50 08/23/24 08:15
Lab Results
08/23/24 04:01
08/23/24 04:01
PT Cancelled 08/22/24 12:33
INR Cancelled 08/22/24 12:33
APTT Cancelled 08/22/24 12:33
Sodium 142 mmol/L (135-145) 08/23/24 04:01
Potassium 4.3 mmol/L (3.5-5.1) 08/23/24 04:01
BUN 23 mg/dl (9-20) H 08/23/24 04:01
Glucose 88 mg/dl (70-99) 08/23/24 04:01
Calcium 9.0 mg/dl (8.4-10.2) 08/23/24 04:01
Phosphorus 4.1 mg/dl (2.5-4.5) 08/23/24 04:01
LDL Cholesterol, Calc 93 mg/dl 08/22/24 11:15
Medications
-
Medications:
Generic Name Dose Route Start Last Admin
Trade Name Freq PRN Reason Stop Dose Admin
Acetaminophen 650 mg 08/22/24 12:33 08/22/24 23:38
Acetaminophen 325 Mg Tablet PO 09/19/24 12:32 650 mg
Q4HPRN PRN Administration
mild pain/SIMS/temp> 100.4F
Albuterol 2 puff 08/22/24 12:33
Albuterol Hfa [90 Mcg/Dose] Inhaler INH
R QIDPRN PRN
wheezing
Protocol
Ascorbic Acid 1,000 mg 08/23/24 08:00 08/23/24 09:09
Ascorbic Acid 500 Mg Tablet PO 09/20/24 07:59 1,000 mg
DAILY DONNY Administration
Atorvastatin Calcium 40 mg 08/22/24 22:00 08/22/24 21:14
Atorvastatin (Lipitor) 40 Mg Tablet PO 09/19/24 21:59 40 mg
Q72H DONNY Administration
Bisacodyl 10 mg 08/22/24 12:33
Bisacodyl 10 Mg Rectal Suppository RECTAL 09/19/24 12:32
[id number] PRN
constipation
Cyanocobalamin 1,000 mcg 08/23/24 08:00
Cyanocobalamin 1,000 Mcg Tablet PO 09/20/24 07:59
DAILY DONNY
Labetalol HCl 10 mg 08/22/24 12:41
Labetalol Hcl 5 Mg/1 Ml (20 Mg/4 Ml) Injection IV 09/19/24 12:40
Q6HPRN PRN
BP > 180/105 mmHg
Levetiracetam 1,000 mg 08/22/24 20:00 08/23/24 09:06
Levetiracetam 500 Mg Regular Release Tablet PO 09/19/24 19:59 1,000 mg
BID DONNY Administration
Metoprolol Succinate 50 mg 08/22/24 22:00 08/22/24 21:14
Metoprolol 50 Mg Extended Release Tablet PO 09/19/24 21:59 50 mg
HS DONNY Administration
Montelukast Sodium 10 mg 08/23/24 08:00 08/23/24 09:06
Montelukast Sodium 10 Mg Tablet PO 09/20/24 07:59 10 mg
DAILY DONNY Administration
Ondansetron HCl 4 mg 08/22/24 12:33
Ondansetron 4 Mg/2 Ml Vial IV 09/19/24 12:32
Q6HPRN PRN
nausea and vomiting
Polyethylene Glycol 17 grams 08/22/24 12:33
Polyethylene Glycol Powder 17 Grams Packet PO 09/19/24 12:32
DAILYPRN PRN
constipation
Prednisone 7.5 mg 08/23/24 08:00 08/23/24 09:06
Prednisone 2.5 Mg Tablet PO 09/20/24 07:59 7.5 mg
DAILY DONNY Administration
Prednisone 2.5 mg 08/22/24 22:00 08/22/24 21:14
Prednisone 2.5 Mg Tablet PO 09/19/24 21:59 2.5 mg
HS DONNY Administration
Senna/Docusate Sodium 1 tablet 08/22/24 12:33
Docusate W/Senna (Sadaf-Colace) Tablet PO 09/19/24 12:32
BIDPRN PRN
constipation
Sodium Chloride 0 flush 08/22/24 11:00 08/22/24 11:37
Sodium Chloride 0.9% (Flush) Syringe IV 09/19/24 10:59 1 flush
PER PROTOCOL DONNY Administration
Home Medications
-
Home Medications
ascorbic acid (vitamin C) 500 mg tablet (Vitamin C) 1,000 mg PO DAILY Supplement 06/06/18
aspirin 81 mg tablet,delayed release 81 mg PO DAILY Blood clot prevention/tx 06/06/18
atorvastatin 40 mg tablet 40 mg PO .Q72H@2200 High cholesterol 06/06/18
metoprolol succinate 50 mg tablet,extended release 24 hr 50 mg PO HS Blood pressure 06/06/18
albuterol sulfate 90 mcg/actuation aerosol inhaler 2 puff inhalation R QIDPRN PRN wheezing 04/12/22
levetiracetam 1,000 mg tablet 1,000 mg PO BID Neurological Condition 04/12/22
cyanocobalamin (vitamin B-12) 1,000 mcg tablet 1,000 mcg PO DAILY #1 tab 04/16/22
montelukast 10 mg tablet (Singulair) 10 mg PO DAILY Lung/Breathing Issues 08/22/24
prednisone 5 mg tablet 12.5 mg PO DIRECTED Anti-Inflammatory 08/22/24
--- NOTE | 2024-08-23 13:00 | W.PN.HOSP.TC ---
Today's Communication/Plan
-
Follow on telemetry, plan DURGA
Increase statin frequency to nightly
Resume aspirin
Neurochecks
Assessment / Plan
Assessment / Plan
#Acute CVA of left precentral gyrus
#Expressive Aphasia
-Suspicion for cardioembolic etiology; lower suspicion for cerebrovascular/carotid stenosis, paradoxical emboli, other vascular etiologies
-(+) for CVA; S/P TNK with resolution and NIHSS 0 subsequently, initial NIHSS 7 with aphasia
-Initial CT head without signs of ICH or other acute findings, CTA without LVO or acute findings
-MRI with 2 mm focus of cortical hyperintensity in the left precentral gyrus, left MCA territory
-CTA was also without any findings of high-grade carotid stenosis; TTE unremarkable
-Status post TNK with NIHSS improvement down to close to 0
-Metabolic panel with LDL 93, total cholesterol 164, HDL 47
-Most recent vital signs with BP 173/96 mmHg
-NIHSS 0 at time of my evaluation
-S/P permissive hypertension
Plan
-Monitor on telemetry for underlying arrhythmia such as AF/AFL
-Increase atorvastatin from 40 mg every 72 hours to nightly
-Plan for transesophageal echocardiogram
-Resume aspirin at 24 hours post TNK
-neurochecks and NIHSS
#Seizure disorder
-History of seizures that he is describes as absent periods
-Home medications include Keppra 1 g twice daily
-Suspect presentation here more related to CVA as it improved with TNK
-EEG unremarkable
#CAD s/p CABG
-Home medications include aspirin, high intensity statin, metoprolol succinate
-CABG was performed in 2010 at [facility]
-Holding aspirin as above due to TNK administration
-No signs of ACS
#Polymyalgia rheumatica
#Chronic steroid
-Home regimen includes prednisone 10 mg (7.5 AM + 2.5 PM)
-Has been on extended taper of prednisone, immunosuppressed
-No signs of worsening symptoms at this time
#Moderate persistent asthma
-Home regimen includes Singulair, as needed albuterol
-No signs of asthma flare
-Should be discharged on LABA/ICS maintenance such as Symbicort
#CARLOS not on CPAP
#H/O GBS
DVT PPhx: SCDs
Diet: Regular
CODE STATUS: Full Code
Anticipated Discharge: > 48 hours
Subjective/Interval History
-
Date of Service: August 23, 2024
Objective Data
-
Labs:
Laboratory Results
08/23/24
04:01
WBC 10.5
Hgb 15.0
Hct 42.8
Plt Count 215
Sodium 142
Potassium 4.3
Chloride 108 H
Carbon Dioxide 25
BUN 23 H
Creatinine 0.8
Glucose 88
Calcium 9.0
Vital Signs:
Vital Signs
Temp Pulse Resp BP Pulse Ox
98.3 F 84 18 164/99 96
08/23/24 07:46 08/23/24 11:15 08/23/24 10:50 08/23/24 11:03 08/23/24 09:49
I&O
08/22/24 08/23/24 08/24/24
06:59 06:59 06:59
Intake Total 360 / 360 360 / 360
Output Total 1350 / 1350 250 / 250
Balance -990 / -990 110 / 110
Data Reviewed
-
MRI: Report Reviewed by me and Discussed with Physician (Neurologist and packing line worker)
Labs: Labs Reviewed by me and Discussed with Patient
--- NOTE | 2024-08-23 14:04 | CM ---
CM following re: discharge planning.
Reviewed pt's chart, met with pt.
Pt is a 73 year old male, admitted with primary dx of CVA/TIA. PMH includes: polymyalgia rheumatica on chronic steroid, dyslipidemia, CARLOS not on CPAP, moderate persistent asthma, B12 deficiency, [facility] pulmonary
nodule, H/O Guillain-Pathak� syndrome, S/P TAVR.
NRI performed today: possible tiny isolated acute/subacute infarct.
Pt reports he lives with spouse 2SH, one step to enter, has 2 supportive children. 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 No DME, VN or SNF history.
PT and OT evaluations pending due to pt receives TNK yesterday.
ST evaluations noted - skilled services indicated.
Pt stated he feels OK, walking independently in the room and he feels to come to for outpatient therapy if indicated.
PCP: Stewart Benson
Pharmacy: [facility]
D/C plan: home with anticipated no needs vs outpatient therapy is recommended by PT/OT/ST.
CM will follow with discharger plan updates as hospitalization progresses
--- NOTE | 2024-08-23 14:04 | CON.CAR ---
Addendum entered and electronically signed by Erik Booth MD 08/23/24 17:10:
I saw and examined the patient.
The BOWLING BALL GRADER AND MARKER's note was reviewed and I agree with the note.
Comment:
73-year-old man with history of CABG in 2010, bio AVR in 2014, and paroxysmal SVT who presented with acute CVA of left precentral gyrus, status post TNK with full recovery. Cardiology is consulted for workup of cardioembolic source of stroke. He
has no CV complaints at this time. Was hoping to go home today. Physical exam reveals well-appearing male, appears stated age, regular rate and rhythm, no murmurs, clear lungs, and no edema. Telemetry reveals 2 short episodes of SVT but no atrial
fibrillation. Echo 08/22/24: Technically difficult study - Lumason used. Normal LV size and function with no regional wall motion abnormality. Left ventricular ejection fraction is 55-60% by visual estimation. Normal right ventricular size and
function. S/p AVR with peak/mean gradients across the aortic valve of 7/4 mmHg respectively. Insufficient TR for estimation of PASP.
We will plan for DURGA tomorrow to look for cardioembolic source of stroke. Please keep n.p.o. past midnight. We will plan for ILR as an outpatient.
Original Note:
Consultation
Consultation Request
Date/Time Consultation Requested: 08/23/24 1314
Date/Time Consultation Performed: 08/23/24 1402
Requesting Provider: Dr. Jean-Baptiste
Performing Provider: Eileen REYNOLDS for Dr. Booth
Reason for Consultation: eval for DURGA
Medical History
-
Chief Complaint: aphasia
History of Present Illness:
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
and is seen to have acute CVA of left precentral gyrus. He is s/p TNK. He has no deficit and looks well at the time of my assessment. We are consulted to evaluate for DURGA/ILR as part of stroke work-up since neurology suspects cardioembolic event.
Past Medical History
Past Medical History: Arrhythmias, Asthma, CAD, HTN, Hypercholesterolemia, Seizures and Valvular Disease
Social History
Tobacco: Non-Smoker
Personal:
Family History
Family History: Reviewed & Not Pertinent
Allergies / Home Medications
Allergy/AdvReac Type Severity Reaction Status Date / Time
chlorpromazine AdvReac Severe Unknown Verified 04/12/22 08:55
[From Thorazine]
�Medication �Instructions �Recorded �Confirmed �Type
ascorbic acid (vitamin C) 500 mg 1,000 mg PO DAILY Supplement 06/06/18 08/22/24 History
tablet (Vitamin C)
aspirin 81 mg tablet,delayed 81 mg PO DAILY Blood clot 06/06/18 08/22/24 History
release prevention/tx
atorvastatin 40 mg tablet 40 mg PO .Q72H@2200 High 06/06/18 08/22/24 History
cholesterol
metoprolol succinate 50 mg 50 mg PO HS Blood pressure 06/06/18 08/22/24 History
tablet,extended release 24 hr
albuterol sulfate 90 mcg/actuation 2 puff inhalation R QIDPRN PRN 04/12/22 08/22/24 History
aerosol inhaler wheezing
levetiracetam 1,000 mg tablet 1,000 mg PO BID Neurological 04/12/22 08/22/24 History
Condition
cyanocobalamin (vitamin B-12) 1,000 mcg PO DAILY #1 tab 04/16/22 08/22/24 Rx
1,000 mcg tablet
montelukast 10 mg tablet 10 mg PO DAILY Lung/Breathing 08/22/24 08/22/24 History
(Singulair) Issues
prednisone 5 mg tablet 12.5 mg PO DIRECTED 08/22/24 08/22/24 History
Anti-Inflammatory
Review of Systems
-
History Source: Patient
All other systems: Negative unless noted
Neurological: Other (aphasia)
Physical Exam
Vital Signs
Temp Pulse Resp BP Pulse Ox
98.3 F 84 18 164/99 96
08/23/24 07:46 08/23/24 11:15 08/23/24 10:50 08/23/24 11:03 08/23/24 09:49
Lab Results
08/23/24 04:01
08/23/24 04:01
Troponin I 0.031 ng/ml 08/22/24 10:11
Physical Exam
General: Well Developed, Well Nourished and No Apparent Distress
HEENT: Normocephalic and Anicteric
Respiratory: Clear and Non Labored Respirations
Cardiac: Regular Rhythm
Musculoskeletal: No Edema
Skin: Warm and Dry
Neuro: AO x 3
Psych: Calm
Impression / Plan
-
Stroke:
-this diagnosis is threat to bodily function
-symptoms of aphasia resolved s/p TNK
-neuro requesting DURGA and ILR. Discussed with patient and . Will arrange.
pSVT:
-seen as OP on monitoring per chart
-brief run on telemetry. Continue metoprolol and monitoring.
hx bio AVR:
-stable by echo
CAD s/p CABG:
-stable without CP
-continue ASA, statin, BB
Data:
Echo 08/22/24: Technically difficult study - Lumason used. Normal LV size and function with no regional wall motion abnormality. Left ventricular ejection fraction is 55-60% by visual estimation. Normal right ventricular size and function. S/p AVR
with peak/mean gradients across the aortic valve of 7/4 mmHg respectively. Insufficient TR for estimation of PASP.
Data Reviewed
-
EKG: Tracing Personally Visualized and interpreted (NSR 77 BPM)
Radiology: Report Reviewed by me (CXR: Low lung volumes. No acute cardiopulmonary process.)
MRI: Report Reviewed by me (2 mm focus of cortical hyperintensity on diffusion in the left precentral gyrus. Possible tiny isolated acute/subacute infarct. Otherwise, relatively mild chronic senescent white matter changes.)
Medical Tests (Nuc Med, Echo etc): Report Reviewed by me (echo as noted)
Labs: Labs Reviewed by me
Old Records: Reviewed (Dr. Kingston OV note 11/04/23)
[2024-08-23] MEDS: LOW STRENGTH ASPIRIN 81 MG PO (15:16)
[2024-08-23] MEDS: VITAMIN B-12 1000 MCG PO (15:35)
--- NOTE | 2024-08-23 16:00 | PTOTSP ---
pt currently requires supervision to no assistance to complete simple ADLs, functional transfers, ambulation. no overt deficits noted regarding pt's cognition, vision, functional tasks. no acute OT needs identified, will sign off.
--- NOTE | 2024-08-23 16:31 | PTOTSP ---
Pt is independent with ambulation on level surface and stairs without need for any assistive devices. No deficits noted. No PT needs identified. PT will sign off.
[2024-08-23] MEDS: TOPROL XL 50 MG PO (20:25)
[2024-08-23] MEDS: LIPITOR 40 MG PO (20:26)
[2024-08-23] MEDS: DELTASONE 2.5 MG PO (20:26)
[2024-08-23] MEDS: LOVENOX 40 MG SC (20:38)
--- NOTE | 2024-08-23 22:11 | PTCARENOTE ---
Patient aao x3 since start of shift, affect pleasant, vss. NIH 0, ambulating in hallway and room independently, gait stable. NSR on the monitor, lungs cta throughout. BS active x4, continent of bowel and bladder. Skin intact. Left ac IV removed due
to pre-hospital line. Discussed poc with patient, questions answered. Will continue to monitor patient closely.
[2024-08-24] VITALS (16 sets, daily range): BP systolic 109–176; BP diastolic 78–100; BMI 31.5
[2024-08-24] MEDS: TYLENOL 650 MG PO (03:43)
[2024-08-24 04:15] LABS: % Basophils 0.5 % (0-2); % Eosinophils 0.6 % (0-6); % Immature Granulocytes 0.6 % (0-0.5); % Lymphocytes 13.7 % (20.5-51.1); % Monocytes 10.1 % (1.7-9.3); % Neutrophils 74.5 % (42.2-75.2); Absolute Basophils 0.1 10^3/uL (0-0.2); Absolute Eosinophils 0.1 10^3/uL (0-0.7); Absolute Immature Granulocytes 0.1 10^3/uL (0-0.05); Absolute Lymphocytes 1.8 10^3/uL (1.2-3.4); Absolute Monocytes 1.3 10^3/uL (0.1-0.6); Absolute Neutrophils 9.7 10^3/uL (1.4-6.5); Hematocrit 43.6 % (39.0-52.0); Hemoglobin 15.2 g/dL (13.0-18.0); Mean Corp Hgb Conc. 34.9 g/dL (33.0-37.0); Mean Corpuscular Hgb 31.3 pg (27.0-31.0); Mean Corpuscular Volume 89.7 fL (80.0-94.0); Mean Platelet Volume 8.6 fL (7.4-10.4); Nucleated Red Blood Cells % 0 % (-); Platelet Count 195 10^3/uL (130-400); Red Blood Cell Count 4.86 10^6/uL (4.70-6.10); Red Cell Dist. Width 13.5 % (11.5-14.5)
[2024-08-24 04:40] LABS: Blood Urea Nitrogen 29 mg/dl (9-20); Calcium 9.5 mg/dl (8.4-10.2); Carbon Dioxide 26 mmol/L (22-30); Chloride 107 mmol/L (98-107); Estimated Creatinine Clearance 96 ml/min; Glucose 109 mg/dl (70-99); Magnesium 1.9 mg/dl (1.6-2.3); Phosphorus 4.2 mg/dl (2.5-4.5); Potassium 4.5 mmol/L (3.5-5.1); Sodium 143 mmol/L (135-145); eGFR > 60.00
--- NOTE | 2024-08-24 08:18 | W.PN.CD ---
Addendum entered and electronically signed by Erik Booth MD 08/24/24 14:14:
I saw and examined the patient.
The NON DESTRUCTIVE EVALUATION TECHNICIAN's note was reviewed and I agree with the note.
Comment:
73-year-old man with history of CABG in 2010, bio AVR in 2015, and paroxysmal SVT who presented with acute CVA of left precentral gyrus, status post TNK with full recovery. He feels well today at time of my assessment. Is waiting for DURGA.
Physical exam reveals well-appearing male, appears stated age, regular rate and rhythm, no murmurs, clear lungs, and no edema. Telemetry reveals 2 short episodes of SVT but no atrial fibrillation. Echo 08/22/24: Technically difficult study - Lumason
used. Normal LV size and function with no regional wall motion abnormality. Left ventricular ejection fraction is 55-60% by visual estimation. Normal right ventricular size and function. S/p AVR with peak/mean gradients across the aortic valve of
7/4 mmHg respectively. Insufficient TR for estimation of PASP.
DURGA with no cardioembolic source of stroke. He is safe for discharge. We will plan for ILR as an outpatient.
Original Note:
Today's Communication / Plan
-
DURGA today. Depending on results, will set up for outpatient ILR.
Impression / Plan
-
Stroke:
-this diagnosis is threat to bodily function
-symptoms of aphasia resolved s/p TNK
-DURGA today. Depending on results will plan for ILR as OP.
pSVT:
-known diagnosis for patient per OP chart. Brief run on telemetry this admit, but none overnight. No AFIB/flutter noted. Continue metoprolol and monitoring.
hx bio AVR:
-stable by echo as below
CAD s/p CABG:
-stable without CP
-continue ASA, statin, BB
Data:
Echo 08/22/24: Technically difficult study - Lumason used. Normal LV size and function with no regional wall motion abnormality. Left ventricular ejection fraction is 55-60% by visual estimation. Normal right ventricular size and function. S/p AVR
with peak/mean gradients across the aortic valve of 7/4 mmHg respectively. Insufficient TR for estimation of PASP.
I spoke with patient this AM and his Mely over the phone in the room with him.
Physical Exam
Vital Signs/Labs
Vital Signs
Temp Pulse Resp BP Pulse Ox
97.9 F 74 18 112/78 99
08/24/24 08:08 08/24/24 04:30 08/23/24 10:50 08/24/24 03:41 08/23/24 20:58
08/23/24 08/24/24 08/25/24
06:59 06:59 06:59
Actual Weight 97.9 kg 98.6 kg
08/24/24 03:51
08/24/24 03:51
PT Cancelled 08/22/24 12:33
INR Cancelled 08/22/24 12:33
APTT Cancelled 08/22/24 12:33
Magnesium 1.9 mg/dl (1.6-2.3) 08/24/24 03:51
Triglycerides 121 mg/dl (10-149) 08/22/24 11:15
LDL Cholesterol, Calc 93 mg/dl 08/22/24 11:15
VLDL Cholesterol, Calc 24 mg/dl (0-30) 08/22/24 11:15
HDL Cholesterol 47 mg/dl 08/22/24 11:15
LAB Results
08/22/24
10:11
Troponin I 0.031
Physical Exam
Constitutional: No acute distress
EENT: Anicteric
Cardiovascular: Rhythm & rate is regular
Respiratory: Respiratory effort normal and Lungs clear to auscul.
Neuro/Psych: AO x 3
Data Reviewed
-
Date of Service: August 24, 2024
EKG: Other (telemetry: SR)
Labs: Labs Reviewed by me
--- NOTE | 2024-08-24 08:30 | PTCARENOTE ---
Pt rec'd from night RN, oob in room, ambulating PRN. NIHSS 0 upon am assessment. Meds given, pt has been NPO since midnight for DURGA planned for this am. Assessment and VSS WNL. Pt pleasant and cooperative but anxious to be dc'd. Utilizing bathroom
PRN> declines bowel reg this am. Stated he has not eaten 'much' and expects BM after he has coffee and more food. Plan discussed with Dr. Mclean at bedside. Pt updated and verbalized agreement. Son arrived in room. Safe environment maintained.
[2024-08-24] MEDS: DELTASONE 7.5 MG PO (08:42)
[2024-08-24] MEDS: LOW STRENGTH ASPIRIN 81 MG PO (08:42)
[2024-08-24] MEDS: SINGULAIR 10 MG PO (08:42)
[2024-08-24] MEDS: KEPPRA 1000 MG PO (08:42)
[2024-08-24] MEDS: VITAMIN C 1000 MG PO (08:43)
[2024-08-24] MEDS: VITAMIN B-12 1000 MCG PO (08:49)
--- NOTE | 2024-08-24 10:04 | W.PN.HOSP.TC ---
Today's Communication/Plan
-
DURGA today
Discharge if DURGA negative
Plan for outpatient ILR
Aspirin and statin
Telemetry while here
Assessment / Plan
Assessment / Plan
#Acute CVA of left precentral gyrus
#Expressive Aphasia
-Suspicion for cardioembolic etiology; lower suspicion for cerebrovascular/carotid stenosis, paradoxical emboli, other vascular etiologies
-(+) for CVA; S/P TNK with resolution and NIHSS 0 subsequently, initial NIHSS 7 with aphasia
-Initial CT head without signs of ICH or other acute findings, CTA without LVO or acute findings
-MRI with 2 mm focus of cortical hyperintensity in the left precentral gyrus, left MCA territory
-CTA was also without any findings of high-grade carotid stenosis; TTE unremarkable
-Status post TNK with NIHSS improvement down to close to 0
-Metabolic panel with LDL 93, total cholesterol 164, HDL 47
-Most recent vital signs with BP 173/96 mmHg
-NIHSS 0 at time of my evaluation
-S/P permissive hypertension
Plan
-Monitor on telemetry for underlying arrhythmia such as AF/AFL
-Continue with atorvastatin 40 mg now nightly instead of every 72 hour
-Continue with baby aspirin
-Plan for transesophageal echocardiogram today
-Plan for outpatient implantable loop recorder
-neurochecks and NIHSS
#Leukocytosis
-Suspect this is reactive with his recent CVA versus in context of chronic steroid
-No fevers or chills, no other signs of infection
-Trend CBC and temperature curve off of antibiotics
#Seizure disorder
-History of seizures that he is describes as absent periods
-Home medications include Keppra 1 g twice daily
-Suspect presentation here more related to CVA as it improved with TNK
-EEG unremarkable
#CAD s/p CABG
-Home medications include aspirin, high intensity statin, metoprolol succinate
-CABG was performed in 2010 at [facility]
-Holding aspirin as above due to TNK administration
-No signs of ACS
#Polymyalgia rheumatica
#Chronic steroid
-Home regimen includes prednisone 10 mg (7.5 AM + 2.5 PM)
-Has been on extended taper of prednisone, immunosuppressed
-No signs of worsening symptoms at this time
#Moderate persistent asthma
-Home regimen includes Singulair, as needed albuterol
-No signs of asthma flare
-Should be discharged on LABA/ICS maintenance such as Symbicort
#CARLOS not on CPAP
#H/O GBS
DVT PPhx: SCDs
Diet: Regular
CODE STATUS: Full Code
Anticipated Discharge: Within 24 hours
Subjective/Interval History
-
Date of Service: August 24, 2024
Seen and examined at the bedside. No acute events reported overnight. AFVSS this morning
Has leukocytosis this morning though no fevers. Denies any infectious symptoms and states he feels well.
Denies any new complaints. Plan for DURGA today
Objective Data
-
Labs:
Laboratory Results
08/24/24
03:51
WBC 13.0 H
Hgb 15.2
Hct 43.6
Plt Count 195
Sodium 143
Potassium 4.5
Chloride 107
Carbon Dioxide 26
BUN 29 H
Creatinine 0.8
Glucose 109 H
Calcium 9.5
Vital Signs:
Vital Signs
Temp Pulse Resp BP Pulse Ox
97.9 F 82 18 131/87 99
08/24/24 08:08 08/24/24 08:40 08/23/24 10:50 08/24/24 08:40 08/23/24 20:58
I&O
08/23/24 08/24/24 08/25/24
06:59 06:59 06:59
Intake Total 360 / 360 360 / 360
Output Total 1350 / 1350 250 / 250
Balance -990 / -990 110 / 110
Review of Systems
-
History Source: Patient
All other systems: Reviewed and negative
Physical Exam
-
General: Well Developed, No Apparent Distress, Comfortable and Obese
HEENT: Normocephalic, Atraumatic, Moist Mucous Membranes and Anicteric
Respiratory: Clear to Auscultation and Non Labored Respirations
Cardiac: Regular Rhythm and S1/S2; Negative Murmur, Rub or Gallop
GI: Soft, Nontender, Nondistended and Normal Bowel Sounds
Musculoskeletal: No Clubbing, No Cyanosis and No Edema
Skin: Warm, Dry and Normal Turgor; Negative Rash
Neuro: AO x 3 and Nonfocal/Grossly Intact; Negative Tremors
Psych: Calm
Data Reviewed
-
Medical Tests (Nuc Med, Echo etc): Discussed with Physician (Cardiology, neurology)
Labs: Labs Reviewed by me, Discussed with Physician and Discussed with Patient
--- NOTE | 2024-08-24 12:45 | W.PN.UPDATE ---
Update Note
Progress Note Update
DURGA with LVEF 55%, stable Bioprosthetic AVR with no AI, Lipomatous septum with no shunt via color doppler and agitated saline. Normal Left atrial appendage with no thrombus.
NO Cardiac source of emboli.
--- NOTE | 2024-08-24 12:51 | PTCARENOTE ---
DURGA performed at bedside by Dr. Barnes, pt tolerated procedure well. VSS, see worklist.
--- NOTE | 2024-08-24 12:58 | W.DCSUMMARY ---
Discharge Summary
Discharge Data
Date of Admission: 08/22/24
Date of Discharge: 08/24/24
Total time spent discharging patient (in min): 32
-
Pending Results: No
Hospital Course
Discharging Physician :� Cam Mclean DO
Disposition :���� Home
Principal Discharge diagnosis :�
Acute CVA (2 mm, left precentral gyrus, left MCA distribution)
Suspected cardioembolic source
Chronic Discharge diagnosis :�
Polymyalgia rheumatica on prednisone
CARLOS not on CPAP
CAD s/p CABG
S/p AVR
Moderate persistent asthma
Seizure disorder
Pulmonary nodules
H/O GBS
Hospital Course :�
73-year-old male that presented to the hospital with aphasia that started morning of his arrival. Symptoms similar to aphasia episodes he had with previous seizures. Initial NIHSS 7 at time of arrival to the ED. Was within window for TNK and
received 250 mg in ED. Quickly noted to have resolution of his aphasia and returned to neurologic baseline. CT head was without signs of ICH (performed prior to TNK). CTA did not show any signs of large vessel occlusions or carotid stenosis. Was
admitted to ICU post TNK for bedrest and neurologic monitoring with neurochecks every 1 hour. At 24 hours post TNK he was started on aspirin and DVT prophylaxis. Evaluated by physical therapy who recommended no outside resources required.
Increased atorvastatin from 40 mg every 72 hours to every night due to LDL 93. LDL goal <70 in the future. MRI on day 2 of hospitalization did show a 2 mm CVA in the left precentral gyrus that anatomically correlated with his deficits. TTE was
without any signs of cardioembolic etiology. DURGA did not show any signs of left atrial appendage thrombus or apical thrombus. Telemetry was without any atrial fibrillation or atrial flutter. Was recommended to have outpatient follow-up with
cardiology for implantable loop recorder which will be arranged within first week of discharge from the hospital. Advised patient to follow-up with PCP within 1 to 2 weeks.
Consultants :
Neurology: Gene Jean-Baptiste MD
Cardiology: Erik Booth MD
Caterers Helper: Jl Wood MD
Important imaging findings :�
Transthoracic echocardiogram (08/22/2024)
CONCLUSIONS:
Technically difficult study - Lumason used.
Normal LV size and function with no regional wall motion abnormality.
Left ventricular ejection fraction is 55-60% by visual estimation.
Normal right ventricular size and function.
S/p AVR with peak/mean gradients across the aortic valve of 7/4 mmHg respectively.
Insufficient TR for estimation of PASP.
No prior study available for comparison.
Transesophageal echocardiogram (08/24/2024)
DURGA with LVEF 55%, stable Bioprosthetic AVR with no AI. Lipomatous septum with no shunt via color doppler and agitated saline. Normal Left atrial appendage with no thrombus.
NO Cardiac source of emboli.
CT head without IV contrast (08/22/2024)
FINDINGS: There is no midline shift nor mass effect. There is no evidence of intracranial hemorrhage. There is mild decreased attenuation about the lateral ventricles consistent with periventricular small vessel ischemic disease. There is normal
ventricular sulcal pattern.
CTA head and neck (08/22/2024)
FINDINGS: There is no evidence of M1 and M2 occlusion. There is no carotid dissection. There is no focal stenosis. The posterior circulation is intact. The enhanced brain parenchyma is unremarkable. The salivary glands are within normal limits. The
airway is unremarkable. The thyroid gland is unremarkable. No significant lymphadenopathy is noted. There is mild disc space narrowing at C7/T1.
MRI brain without contrast ()
FINDINGS: There is a 2 mm focus of cortical hyperintensity on diffusion in the posterior-superior left frontal lobe, involving the precentral gyrus. Given the small size, it is difficult to assess signal intensity on the ADC map. Possible tiny
isolated acute/subacute infarct. Otherwise, relatively mild chronic senescent white matter changes. No focal mass or mass effect identified. No midline shift or extra-axial collection. No hydrocephalus. Age-appropriate atrophy. Normal flow-voids in
the vascular structures at the skull base. No paranasal sinus mucosal thickening. The mastoid air cells are clear.
Procedure findings :� N/A
Follow-up :
Follow-up with PCP in 1 to 2 weeks from discharge. Will need repeat lipid panel in 3 months for LDL goal <70
Follow-up with lens grinder apprentice within 1 week of discharge for implantable loop recorder
Discharge Plan
-
Patient Disposition: Home (Routine Discharge)
Discharge Diagnosis/Procedures: Acute CVA (2 mm, left precentral gyrus)
Status post TNK administration
Transesophageal echocardiogram
Condition: Fair
Diet: Low Cholesterol and No added salt
Activity: As tolerated
Driving Restrictions: Not until seen by your Dr
Bathing Restrictions: None
Blood Work: Follow-up with your family doctor for repeat lipid panel in 3 months, other routine blood work such as CBC and BMP
Others Tests: Implantable loop recorder to be performed by lens grinder apprentice
Activity Restrictions/Additional Instructions:
After discharge from the hospital schedule follow-up appointment with your family doctor. Should be seen in office within 1 to 2 weeks of discharge from the hospital
Follow-up with lens grinder apprentice, referral provided below if needed. You will see them in office after discharge. They will arrange for your implantable loop recorder, we will contact you within the week after your discharge
Instructions: Stroke
Referrals:
Eileen Pina CRNP [Specified Professional Personl] - in one week
Stewart Benson DO [Family Provider] -
Additional Discharge Medication Instructions: Continue aspirin 81 mg daily
Increase frequency of atorvastatin 40 mg to EVERY night
Continue prednisone course as previously directed
Prescriptions:
New
atorvastatin 40 mg Tablet
40 mg PO HS 30 Days Qty: 30 0RF
aspirin 81 mg Tablet,Chewable
81 mg PO DAILY 30 Days Qty: 30 0RF
Continued
metoprolol succinate 50 MG tablet extended release 24 hr
50 mg PO HS
ascorbic acid (vitamin C) [Vitamin C] 500 MG tablet
1,000 mg PO DAILY
levetiracetam 1,000 mg Tablet
1,000 mg PO BID
albuterol sulfate 1 PUFF HFA aerosol inhaler
2 puff inhalation R QIDPRN PRN (Reason: wheezing)
cyanocobalamin (vitamin B-12) 1,000 mcg Tablet
1,000 mcg PO DAILY Qty: 1 0RF
prednisone 5 mg Tablet
12.5 mg PO DIRECTED
Rx Instructions:
as of august 08 patient to decrease to 12.5mg, unsure for how long
montelukast [Singulair] 10 mg Tablet
10 mg PO DAILY
Discontinued
atorvastatin 40 MG tablet
40 mg PO .Q72H@2200
aspirin 81 MG tablet,delayed release (DR/EC)
81 mg PO DAILY
Discharge Orders:
Discharge Patient (As Directed); Ordered 08/24/24
Ordered By: Cam Mclean
Discharge Date and Time
Print Language: FRENCH
--- NOTE | 2024-08-24 13:22 | PTCARENOTE ---
DURAG procedure done at patient bedside. Pt seen by Dr Palm anesthesiologist. Anesthesia given by Flavia Hutchinson CRNA. See anesthesia record for meds and vital signs. Dr Bryant performing DURGA. Time out done at 1229 PM. Probe in at 12:31
PM. Patient stable through procedure. Bubble study done. Probe out at 12:42 PM. ICU nurse to recover patient.
--- NOTE | 2024-08-24 13:52 | CM ---
CM following re: discharge planning.
Reviewed pt's chart, met with pt. pt's son and daughter at bedside.
Discharge order noted. Both pt and his family are aware, expressed their agreement with discharge. IMM reviewed, placed on chart, pt has a copy.
PT, OT, ST evaluations noted - no skilled services indicated.
D/C plan: home no needs. Family to transport.
== END 2024-08-24 14:50 | disposition home or self-care (01) | DRG 62 ==
LOC: ICU 12:10
PROVIDERS: Internal Medicine Cardiovascular Disease; ADMITTING PHYSICIAN Internal Medicine; CONSULT PHYSICIAN Psychiatry & Neurology Neurology; CONSULT PHYSICIAN Student in an Organized Health Care Education/Training Program; EMERGENCY PHYSICIAN Student in an Organized Health Care Education/Training Program; FAMILY PHYSICIAN Family Medicine; OTHER PHYSICIAN Internal Medicine Critical Care Medicine
PROC: 3E03317 Introduction of Other Thrombolytic into Peripheral Vein, Percutaneous Approach (ICD-10-PCS; 2024-08-22)
PROC: B24BZZ4 Ultrasonography of Heart with Aorta, Transesophageal (ICD-10-PCS; 2024-08-24)
DX: I63.81 Other cerebral infarction due to occlusion or stenosis of small artery (principal); D84.9 Immunodeficiency, unspecified; G40.109 Localization-related (focal) (partial) symptomatic epilepsy and epileptic syndromes with simple partial seizures, not intractable, without status epilepticus; I47.10 Supraventricular tachycardia, unspecified; Z86.73 Personal history of transient ischemic attack (TIA), and cerebral infarction without residual deficits; R47.01 Aphasia; G47.33 Obstructive sleep apnea (adult) (pediatric); M35.3 Polymyalgia rheumatica; E78.00 Pure hypercholesterolemia, unspecified; J45.40 Moderate persistent asthma, uncomplicated; E53.8 Deficiency of other specified B group vitamins; I25.10 Atherosclerotic heart disease of native coronary artery without angina pectoris; R29.707 NIHSS score 7; I10 Essential (primary) hypertension; E66.9 Obesity, unspecified; G25.0 Essential tremor; D72.829 Elevated white blood cell count, unspecified; R76.8 Other specified abnormal immunological findings in serum; R91.1 Solitary pulmonary nodule; G89.29 Other chronic pain; M54.9 Dorsalgia, unspecified; Z68.33 Body mass index [BMI] 33.0-33.9, adult; Z95.1 Presence of aortocoronary bypass graft; Z95.3 Presence of xenogenic heart valve; Z79.82 Long term (current) use of aspirin; Z79.52 Long term (current) use of systemic steroids
CPT/HCPCS: 70450; 70496; 70498; 70551; 71045; 80048; 80053; 80061; 82962; 83036; 83735; 84100; 84443; 84484; 85025; 85610; 85730; 92507; 92523; 92610; 93005; 93306; 93312; 93320; 93325; 95816; 97163; 97166; 99291; J3101; Q9950; Q9967

== ENCOUNTER 2024-09-04 11:14 | Day surgery (SDC) | payer MEDICARE, OTHER, SELFPAY ==
--- NOTE | 2024-09-04 13:52 | ITS.CL.IMPLP ---
[employer] - Implant Loop
Implant Loop
Procedure Report:
Procedure: Insertion of Loop Recorder.�
Date of the procedure: 09/04/2024
Procedure Physician: Bk Delgado MD [facility]
Indication: Cryptogenic stroke
Description of the procedure:
Patient was brought to the holding area after informed consent was obtained from the patient. The time-out was performed immediately before the procedure.
The left parasternal chest area was prepped and draped in sterile fashion with chlorhexidine prep x 3 times. Lidocaine 1% was injected subcutaneously for local anesthesia. The loop recorder was tunneled and then injected into the subcutaneous
tissue. The tunneling tool was removed leaving the loop recorder in place. The dermis was closed with steristrips and a pressure Tegaderm dressing was placed. There were no immediate complications.
Post procedure, the device was interrogated and showed good detectable P and R waves.
There were no immediate complications.
Device:
LINQII; Model: [id number]; Serial #:[id number]
R wave amplitude: 0.32 mV
Final Programming:
��������������� Tachycardia Detection: >182 bpm for 16 beats
��������������� Bradycardia Detection: 30 bpm for 12 beats, Asystole for 5 seconds.
��������������� Atrial fibrillation detection: On with > 10 min duration
Conclusion:
Successful insertion of loop recorder.
Recommendation:
Routine post-insert loop care.
== END 2024-09-04 13:27 | disposition home or self-care (01) ==
LOC: CATH 11:14
PROVIDERS: ATTENDING PHYSICIAN Internal Medicine Cardiovascular Disease; FAMILY PHYSICIAN Family Medicine; OTHER PHYSICIAN Student in an Organized Health Care Education/Training Program
DX: Z09 Encounter for follow-up examination after completed treatment for conditions other than malignant neoplasm (principal); Z86.73 Personal history of transient ischemic attack (TIA), and cerebral infarction without residual deficits; I25.10 Atherosclerotic heart disease of native coronary artery without angina pectoris; Z95.1 Presence of aortocoronary bypass graft; I48.0 Paroxysmal atrial fibrillation; I10 Essential (primary) hypertension; J44.9 Chronic obstructive pulmonary disease, unspecified
CPT/HCPCS: 33285; C1764

== ENCOUNTER → 2025-02-19 10:45 | Outpatient (REF) | payer MEDICARE, OTHER, SELFPAY | LOC: DHSLP 10:45 | PROVIDERS: ATTENDING PHYSICIAN Internal Medicine Critical Care Medicine; FAMILY PHYSICIAN Family Medicine | DX: G47.30 Sleep apnea, unspecified (principal); R06.83 Snoring | CPT/HCPCS: 95800 ==